=== PATIENT | male | born 1980 | race Caucasian/White ===

== ENCOUNTER 2020-01-11 00:02 | Emergency (ER) | payer SELFPAY ==
[~2020-01-11] VITALS: Ht 172.7 cm; Wt 81.6 kg
[2020-01-11 00:14] VITALS: Ht 172.7 cm; Wt 81.6 kg
[2020-01-11 06:01] VITALS: BP 117/68
== END 2020-01-11 06:01 | disposition home or self-care (01) ==
LOC: ED 00:02
DX: F10.129 Alcohol abuse with intoxication, unspecified (principal)

== ENCOUNTER 2020-04-04 01:35 | Emergency (ER) | payer SELFPAY ==
[~2020-04-04] VITALS: Ht 170.2 cm; Wt 80.0 kg
[2020-04-04 01:40] VITALS: Ht 170.2 cm; Wt 80.0 kg
[2020-04-04 05:15] VITALS: BP 139/79
== END 2020-04-04 05:15 | disposition home or self-care (01) ==
LOC: ED 01:35
DX: S42.021A Displaced fracture of shaft of right clavicle, initial encounter for closed fracture (principal); R68.84 Jaw pain; S50.311A Abrasion of right elbow, initial encounter; V19.9XXA Pedal cyclist (driver) (passenger) injured in unspecified traffic accident, initial encounter; Y93.I9 Activity, other involving external motion; Y92.89 Other specified places as the place of occurrence of the external cause; Y99.8 Other external cause status
CPT/HCPCS: Q0092